=== PATIENT | female | born 1975 | race Caucasian/White ===

== ENCOUNTER 2023-02-07 10:53 | Day surgery (SDC) | payer OTHER ==
[~2023-02-07 10:53] MED LIST: Lactated Ringers 1,000 ML IV SCH; Sodium Chloride 0.9% 10 ML Syringe FLUSH PRN; Sodium Chloride 0.9% 2.5 ML Syringe FLUSH PRN; Sodium Chloride 0.9% 20 ML SDV IV PRN
[2023-02-07] MEDS ORDERED: Propofol 200 MG/20 ML SDV ONE (11:51)
[2023-02-07] MEDS ORDERED: Lidocaine 2% 5 ML SDV ONE (12:03)
== END 2023-02-07 13:09 | disposition home or self-care (01) ==
LOC: MW.SDS 10:53
PROVIDERS: ATTEND Surgery
DX: K21.9 Gastro-esophageal reflux disease without esophagitis (principal); R19.4 Change in bowel habit; F41.9 Anxiety disorder, unspecified; F32.A Depression, unspecified; Z86.010 Personal history of colon polyps; Z87.891 Personal history of nicotine dependence; Z98.890 Other specified postprocedural states; Z79.899 Other long term (current) drug therapy
CPT/HCPCS: 43239; 45380; 81025; J2704; J7120; 00813; J3490